=== PATIENT | male | born 1980 | race Caucasian/White ===

== ENCOUNTER 2018-05-19 07:27 | Emergency (ER) | payer OTHER, SELFPAY ==
[2018-05-19 08:23] LABS: BASO % 0.5 % (0.0-2.0); EOS # 0.1 K/uL (0.0-0.7); EOS % 1.5 % (0.0-4.0); HEMOGLOBIN 16.8 g/dL (12.0-18.0); LYMPH # 2.8 K/uL (1.0-4.3); MEAN CELL VOLUME 100.6 fL (80.0-94.0); MEAN CORPUSCULAR HEMOGLOBIN 35.7 pg (27.0-31.0); MEAN CORPUSCULAR HGB CONC 35.4 g/dL (33.0-37.0); MEAN PLATELET VOLUME 7.2 fL (7.2-11.7); MONO # 0.4 K/uL (0.0-0.8); MONO % 7.3 % (0.0-10.0); NEUT # 2.6 K/uL (1.8-7.0); NEUT % 43.7 % (50.0-75.0); NRBC % 0.1 % (0.0-2.0); RBC 4.7 Mil/uL (4.40-5.90); RED CELL DISTRIBUTION WIDTH 15.6 % (11.5-14.5); WHITE BLOOD COUNT 5.9 K/uL (4.8-10.8)
[2018-05-19] MEDS ORDERED: Morphine 4 MG/ML VIAL ONE (08:27)
[2018-05-19 08:37] LABS: ALB/GLOB RATIO 1.5 (1.0-2.1); ALBUMIN 4.6 g/dL (3.5-5.0); ALT/SGPT 37 U/L (21-72); AST/SGOT 43 U/L (17-59); BLOOD UREA NITROGEN 19 mg/dL (9-20); CALCIUM 9.2 mg/dl (8.6-10.4); GFR NON-AFRICAN AMERICAN > 60; LIPASE 70 U/L (23-300)
--- NOTE | 2018-05-19 08:42 | C.PDOC ---
History Of Present Illness 38 y/o male,w/PMhx of gastric cancer, presents to the ER complaining of left lateral rib and left back pain which has been present for the past 3 days. Patient states that the pain began after he lifted an object while he was [place] [employer] Patient reports that he was diagnosed with gastric cancer in 2008. Patient had liver metastasis and multiple surgeries. He was in remission however there was a recurrence 5 months ago. He is currently undergoing chemotherapy for 2 weeks and then he has 1 week off. He notes that today is his first day off from chemotherapy. Patient does note that he usually has nausea,vomiting, diarrhea, and jaundice with chemotherapy. Denies having direct trauma to back, rash, fever, chills, cough, and SOB. Time Seen by Provider: 05/19/18 07:31 Chief Complaint (Nursing): Back Pain History Per: Patient History/Exam Limitations: no limitations Onset/Duration Of Symptoms: Days Current Symptoms Are (Timing): Still Present Severity: Moderate Past Medical History Reviewed: Historical Data, Nursing Documentation, Vital Signs Vital Signs: Last Vital Signs Temp 98.3 F 05/19/18 07:36 Pulse 68 05/19/18 07:36 Resp 17 05/19/18 07:36 BP 162/123 H 05/19/18 07:36 Pulse Ox 98 05/19/18 07:36 - Medical History PMH: No Chronic Diseases Other Surgeries: Hx of surgeries Family History: States: No Known Family Hx - Social History Hx Alcohol Use: No Hx Substance Use: No Review Of Systems Except As Marked, All Systems Reviewed And Found Negative. Constitutional: Negative for: Fever, Chills Respiratory: Negative for: Cough, Shortness of Breath Gastrointestinal: Positive for: Nausea, Vomiting, Diarrhea. Negative for: Abdominal Pain Musculoskeletal: Positive for: Back Pain, Other (rib pain) Skin: Positive for: Jaundice Physical Exam - Physical Exam Appears: Chronically Ill Skin: Warm, Dry, No Rash, Jaundice Head: Atraumatic, Normacephalic Eye(s): bilateral: Normal Inspection Nose: Normal Oral Mucosa: Moist Neck: Supple Chest: Symmetrical, Tenderness (left lateral and posterior rib tenderness) Cardiovascular: Rhythm Regular Respiratory: Normal Breath Sounds, No Rales, No Rhonchi, No Wheezing Gastrointestinal/Abdominal: Soft, No Tenderness, No Guarding, No Rebound, Other (large midline surgical scar) Extremity: Normal ROM, Other (no crepitus) Neurological/Psych: Oriented x3, Normal Speech ED Course And Treatment - Laboratory Results Result Diagrams: 05/19/18 08:20 05/19/18 08:20 O2 Sat by Pulse Oximetry: 98 (RA) Pulse Ox Interpretation: Normal - Other Rad X-Ray-Ribs w/Chest X-Ray: Viewed By Me, Read By Radiologist Interpretation: Date of service: 05/19/2018. PROCEDURE: Radiographs of the Chest and Left Ribs. HISTORY: left sided rib/chest pain. COMPARISON: None available. TECHNIQUE: Frontal radiograph of the chest and multiple oblique radiographs of the left ribs were obtained. FINDINGS: LEFT RIBS: No fracture or focal lesion visualized. LUNGS: No focal consolidation. Please note that chest x-ray has limited sensitivity for the detection of pulmonary masses. PLEURA: Mild blunting of the right costophrenic angle may reflect minimal pleural thickening/fluid. No definite pneumothorax. CARDIOVASCULAR: Heart size appears top normal. Ectatic aorta. OTHER FINDINGS: Elevation of the right hemidiaphragm. IMPRESSION: Unremarkable mild blunting of the right costophrenic angle may reflect minimal pleural thickening/fluid. No appreciable displaced left rib fracture. - CT Scan/US CT CHEST/ABD/PELVIS Other Rad Studies (CT/US): Read By Radiologist, Radiology Report Reviewed CT/US Interpretation: Accession No. : [id number]. Patient Name / ID : ALE MARSHALL / [id number]. Exam Date : 05/19/2018 10:25:53 ( Approved ). Study Comment : Sex / Age : M / 38Y. Creator : Ileana Silvestre. Dictator : Viral Lugo MD. Forest Technology Professor : Surveying Crew Rodman : Viral Lugo MD. Approver2 : Report Date : 05/19/2018 10:44:52. My Comment : . Date of service: 05/19/2018. PROCEDURE: CT Chest, Abdomen and Pelvis with intravenous contrast. HISTORY: gastric CA with mets, left sided rib/chest/abd pain. COMPARISON: Comparison is made to the previous study dated 02/14/2015. TECHNIQUE: IV dose administered: 100 mL of Visipaque 320 intravenously. Axial and reformatted coronal and sagittal CT images of the chest abdomen and pelvis were obtained after IV contrast administration. Radiation dose: Total exam DLP = 1034.95 mGy-cm. This CT exam was performed using one or more of the following dose reduction techniques: Automated exposure control, adjustment of the mA and/or kV according to patient size, and/or use of iterative reconstruction technique. FINDINGS: CT CHEST WITH CONTRAST: LUNGS: Interval appearance of pleural base nodule at the anterior aspect of the right lung upper lobe measures 7.9 millimeter since the prior study. Otherwise no significant interval changes in the lungs noted. There is again noted linear opacity at the left lung base likely scar tissue. There are small nonspecific ground-glass opacities noted at the lower lobes may related to mild congestion or atelectasis. MEDIASTINUM: Unremarkable. Normal caliber aorta and pulmonary arterial trunk. No aortic dissection. Normal size heart. LYMPH NODES: Unremarkable. PLEURA: Unremarkable. No pneumothorax. No pleural fluid. BONES: Unremarkable. OTHER FINDINGS: None. CT ABDOMEN AND PELVIS: LIVER: There is interval increase in the size of slightly low-attenuation mass lesion at the anterior aspect of the caudate lobe of the liver since the prior study measures 3.1 in the transverse diameter and 2.6 in the AP diameter suspicious for liver metastasis. The liver is mildly enlarged and slightly heterogeneous. GALLBLADDER AND BILE DUCTS: Unremarkable. PANCREAS: Unremarkable. No gross lesion or ductal dilatation. SPLEEN: Unremarkable. ADRENALS: Unremarkable. No mass. KIDNEYS AND URETERS: Unremarkable. No hydronephrosis. No solid mass. VASCULATURE: No aortic atherosclerotic calcification or mural plaque present. Unremarkable. No aortic aneurysm. BOWEL: The patient is again status post bowel anastomosis at the rectum. Diffuse mild large bowel wall thickening more prominent distally is noted.. No obstruction. APPENDIX: Normal appendix. PERITONEUM: There are soft tissue lesions noted in the left upper abdomen lateral to the stomach highly suspicious for metastasis. The largest lesion measures 3.8 centimeter in the transverse diameter and 4 centimeter in the AP diameter. There is adjacent mass also measures 3.1 centimeter in the transverse diameter and 3.3 centimeter in the AP diameter. LYMPH NODES: No evidence of significant retroperitoneal lymphadenopathy. BLADDER: Unremarkable. REPR ODUCTIVE: Unremarkable. BONES: No acute fracture. OTHER FINDINGS: None. IMPRESSION: Pleural base nodule measures 0.8 centimeter noted at the anterior aspect of the right lung upper lobe new compared to the prior study. Soft tissue mass lesions in the left upper and mid abdomen highly suspicious for metastasis and omental implants with the largest mass measures 4 x 3.8 centimeter. Soft tissue mass lesion in the liver caudate lobe also suggestive of metastasis. If clinically warranted further assessment by PET-CT is suggested. Progress Note: Labs and X-Ray-Left Chest and Ribs ordered.Patient treated with Morphine IV. 8:58 AM Case discussed with patient's oncologist . reccomends ordering CT. CT- Chest, Abd, and Pelv. ordered. Disposition Counseled Patient/Family Regarding: Studies Performed, Diagnosis, Need For Followup, Rx Given - Disposition Referrals: Celina Tarango MD [Staff Provider] - Disposition: HOME/ ROUTINE Disposition Time: 11:50 Condition: STABLE Additional Instructions: FOLLOW UP WITH DR TARANGO TODAY OR TOMORROW IN THE OFFICE USE PAIN MEDICATIONS NEEDED RETURN TO ER IF SYMPTOMS WORSEN Prescriptions: oxyCODONE/Acetaminophen [Percocet 5/325 mg Tab] 1 tab PO QID PRN #20 tab PRN Reason: Pain Forms: [facility] (Polish) Print Language: CAMBODIAN - Clinical Impression Clinical Impression: Metastatic cancer, Rib pain on left side - Scribe Statement The provider has reviewed the documentation as recorded by the Liss Neville Provider Attestation: All medical record entries made by the Liss were at my direction and personally dictated by me. I have reviewed the chart and agree that the record accurately reflects my personal performance of the history, physical exam, medical decision making, and the department course for this patient. I have also personally directed, reviewed, and agree with the discharge instructions and disposition.
[2018-05-19] MEDS ORDERED: Iodixanol 320 MG/ML 100 ML BOTTLE IV ONE (10:10)
[2018-05-19 10:23] VITALS: RESP 20
--- NOTE | 2018-05-19 11:34 | CT ---
Date of service: 05/19/2018 PROCEDURE: CT Chest, Abdomen and Pelvis with intravenous contrast HISTORY: gastric CA with mets, left sided rib/chest/abd pain COMPARISON: Comparison is made to the previous study dated 02/14/2015 TECHNIQUE: IV dose administered: 100 mL of Visipaque 320 intravenously. Axial and reformatted coronal and sagittal CT images of the chest abdomen and pelvis were obtained after IV contrast administration. Radiation dose: Total exam DLP = 1034.95 mGy-cm. This CT exam was performed using one or more of the following dose reduction techniques: Automated exposure control, adjustment of the mA and/or kV according to patient size, and/or use of iterative reconstruction technique. FINDINGS: CT CHEST WITH CONTRAST: LUNGS: Interval appearance of pleural base nodule at the anterior aspect of the right lung upper lobe measures 7.9 millimeter since the prior study. Otherwise no significant interval changes in the lungs noted. There is again noted linear opacity at the left lung base likely scar tissue. There are small nonspecific ground-glass opacities noted at the lower lobes may related to mild congestion or atelectasis. MEDIASTINUM: Unremarkable. Normal caliber aorta and pulmonary arterial trunk. No aortic dissection. Normal size heart. LYMPH NODES: Unremarkable. PLEURA: Unremarkable. No pneumothorax. No pleural fluid. BONES: Unremarkable. OTHER FINDINGS: None. CT ABDOMEN AND PELVIS: LIVER: There is interval increase in the size of slightly low-attenuation mass lesion at the anterior aspect of the caudate lobe of the liver since the prior study measures 3.1 in the transverse diameter and 2.6 in the AP diameter suspicious for liver metastasis. The liver is mildly enlarged and slightly heterogeneous. GALLBLADDER AND BILE DUCTS: Unremarkable. PANCREAS: Unremarkable. No gross lesion or ductal dilatation. SPLEEN: Unremarkable. ADRENALS: Unremarkable. No mass. KIDNEYS AND URETERS: Unremarkable. No hydronephrosis. No solid mass. VASCULATURE: No aortic atherosclerotic calcification or mural plaque present. Unremarkable. No aortic aneurysm. BOWEL: The patient is again status post bowel anastomosis at the rectum. Diffuse mild large bowel wall thickening more prominent distally is noted.. No obstruction. APPENDIX: Normal appendix. PERITONEUM: There are soft tissue lesions noted in the left upper abdomen lateral to the stomach highly suspicious for metastasis. The largest lesion measures 3.8 centimeter in the transverse diameter and 4 centimeter in the AP diameter. There is adjacent mass also measures 3.1 centimeter in the transverse diameter and 3.3 centimeter in the AP diameter LYMPH NODES: No evidence of significant retroperitoneal lymphadenopathy. BLADDER: Unremarkable. REPRODUCTIVE: Unremarkable. BONES: No acute fracture. OTHER FINDINGS: None. IMPRESSION: Pleural base nodule measures 0.8 centimeter noted at the anterior aspect of the right lung upper lobe new compared to the prior study. Soft tissue mass lesions in the left upper and mid abdomen highly suspicious for metastasis and omental implants with the largest mass measures 4 x 3.8 centimeter. Soft tissue mass lesion in the liver caudate lobe also suggestive of metastasis. If clinically warranted further assessment by PET-CT is suggested.
--- NOTE | 2018-05-19 11:50 | RAD ---
Date of service: 05/19/2018 PROCEDURE: Radiographs of the Chest and Left Ribs. HISTORY: left sided rib/chest pain COMPARISON: None available. TECHNIQUE: Frontal radiograph of the chest and multiple oblique radiographs of the left ribs were obtained. FINDINGS: LEFT RIBS: No fracture or focal lesion visualized. LUNGS: No focal consolidation. Please note that chest x-ray has limited sensitivity for the detection of pulmonary masses. PLEURA: Mild blunting of the right costophrenic angle may reflect minimal pleural thickening/fluid. No definite pneumothorax. CARDIOVASCULAR: Heart size appears top normal. Ectatic aorta. OTHER FINDINGS: Elevation of the right hemidiaphragm. IMPRESSION: Unremarkable mild blunting of the right costophrenic angle may reflect minimal pleural thickening/fluid. No appreciable displaced left rib fracture.
[2018-05-19 12:06] VITALS: BP 132/88; PULSE 67; TEMP 98.4; O2SAT 99
== END 2018-05-19 12:06 | disposition home or self-care (01) ==
LOC: C.ER 07:27
DX: R07.81 Pleurodynia (principal); C78.7 Secondary malignant neoplasm of liver and intrahepatic bile duct
CPT/HCPCS: 71101; 71260; 74177; 80053; 83690; 84443; 85025; 96374; 99285; J2270; Q9967

== ENCOUNTER → 2018-06-20 | Outpatient (CLI) | payer OTHER | LOC: C.LAB 08:04 | DX: C49.A0 Gastrointestinal stromal tumor, unspecified site (principal) ==